=== PATIENT | female | born 1945 | race Caucasian/White ===

== ENCOUNTER 2019-12-25 00:01 | Emergency (ER) | payer MEDICARE, BC ==
--- NOTE | 2019-12-25 00:30 | EDM.PDOC ---
ED HPI GENERAL MEDICAL PROBLEM - General Chief Complaint: Headache Stated Complaint: HEADACHE Time Seen by Provider: 12/25/19 00:27 Source of Information: Reports: Patient History Limitations: Reports: No Limitations - History of Present Illness INITIAL COMMENTS - FREE TEXT/NARRATIVE: 74 yo female with MARKS for 3 days. Started insidiously on Wednesday,got worse tonight,Worse when she lays down. Woke up with it tonight.No other symptoms. Previously healthy.Nonsmoker. - Related Data Allergies Allergy/AdvReac Type Severity Reaction Status Date / Time Penicillins Allergy Diarrhea Verified 12/25/19 00:18 Home Meds: Home Meds Rosuvastatin Calcium 10 mg PO DAILY 12/25/19 [History] Past Medical History HEENT History: Reports: Other (See Below) Other HEENT History: Wears glasses. Cardiovascular History: Reports: High Cholesterol, Other (See Below) Other Cardiovascular History: Borderline hypertension. Gastrointestinal History: Reports: Other (See Below) Other Gastrointestinal History: IBS. - Past Surgical History Female Surgical History: Reports: Hysterectomy ED ROS GENERAL - Review of Systems Review Of Systems: Comprehensive ROS is negative, except as noted in HPI. - Physical Exam Exam: See Below Exam Limited By: No Limitations General Appearance: Alert, WD/WN, No Apparent Distress Throat/Mouth: Normal Inspection, Normal Lips, Normal Teeth, Normal Gums, Normal Oropharynx, Normal Voice, No Airway Compromise Head Exam: Atraumatic, Normocephalic Neck: Normal Inspection, Supple, Non-Tender, Full Range of Motion Cardiovascular: Normal Peripheral Pulses, Regular Rate, Rhythm, No Edema, No Gallop, No JVD, No Murmur, No Rub Neuro Exam (Abbreviated): Alert, Oriented, CN II-XII Intact, Normal Cognition, Normal Gait, Normal Reflexes, No Motor/Sensory Deficits Extremities: Normal Inspection, Normal Range of Motion Psychiatric: Normal Affect, Normal Mood Skin Exam: Warm, Dry Course - Vital Signs Last Recorded V/S: Last Vital Signs Temp 97.6 F 12/25/19 00:05 Pulse 69 12/25/19 01:40 Resp 16 12/25/19 01:40 BP 152/61 H 12/25/19 01:40 Pulse Ox 97 12/25/19 01:40 - Orders/Labs/Meds Orders: Active Orders 24 hr Category Date Time Status Head wo Cont [CT] Stat Exams 12/25/19 00:27 Taken Labs: Laboratory Tests 12/25/19 12/25/19 12/25/19 Range/Units 00:42 00:42 00:42 WBC 4.7 (4.5-12.0) X10-3/uL RBC 4.49 (3.23-5.20) x10(6)uL Hgb 13.8 (11.5-15.5) g/dL Hct 42.2 (30.0-51.3) % MCV 94.0 (80-96) fL MCH 30.7 (27.7-33.6) pg MCHC 32.6 (32.2-35.4) g/dL RDW 13.0 (11.5-15.5) % Plt Count 232 (125-369) X10(3)uL MPV 8.4 (7.4-10.4) fL Neut % (Auto) 55.4 (46-82) % Lymph % (Auto) 29.0 (13-37) % [place] % (Auto) 12.9 H (4-12) % Eos % (Auto) 2 (1.0-5.0) % Baso % (Auto) 1 (0-2) % Neut # (Auto) 2.6 (1.6-8.3) # Lymph # (Auto) 1.4 (0.6-5.0) # [place] # (Auto) 0.6 (0.0-1.3) # Eos # (Auto) 0.1 (0.0-0.8) # Baso # (Auto) 0.0 (0.0-0.2) # Sodium 144 (135-145) mmol/L Potassium 3.7 (3.5-5.3) mmol/L Chloride 106 (100-110) mmol/L Carbon Dioxide 28 (21-32) mmol/L BUN 15 (7-18) mg/dL Creatinine 0.7 (0.55-1.02) mg/dL Est Cr Clr Drug Dosing 60.17 mL/min Estimated GFR (MDRD) > 60 (>60) BUN/Creatinine Ratio 21.4 H (9-20) Glucose 104 (80-116) mg/dL Calcium 9.1 (8.6-10.2) mg/dL Troponin I 7.4 (4.0-60.3) pg/mL Meds: Medications Discontinued Medications Generic Name Dose Route Start Last Admin Trade Name Peteq PRN Reason Stop Dose Admin Enalaprilat 1.25 mg 12/25/19 00:30 12/25/19 00:40 Vasotec Iv IVPUSH 12/25/19 00:31 1.25 mg ONETIME ONE Administration Labetalol HCl 10 mg 12/25/19 00:27 12/25/19 00:48 Normodyne IVPUSH 12/25/19 00:28 Not Given ONETIME ONE Protocol Departure - Departure Time of Disposition: 02:00 Disposition: Home, Self-Care 01 Condition: Good Clinical Impression: Tension-type headache - Discharge Information Instructions: How to Take Your Blood Pressure Referrals: Raymundo Guidry MD [Primary Care Provider] - Forms: ED Department Discharge Care Plan Goals: Rest. Check blood pressure daily. Follow up with MD. Sepsis Event Note - Evaluation Sepsis Screening Result: No Definite Risk - Focused Exam Vital Signs: Vital Signs Temp Pulse Resp BP BP Pulse Ox 12/25/19 01:40 69 16 152/61 H 97 12/25/19 01:25 65 12 146/62 H 100 12/25/19 01:15 68 12 152/65 H 100 12/25/19 01:00 72 16 166/66 H 99 12/25/19 00:45 72 14 168/62 H 99 12/25/19 00:40 166/66 H 12/25/19 00:25 71 18 158/62 H 99 12/25/19 00:05 97.6 F 78 16 197/74 H 98 Date Exam was Performed: 12/25/19 Time Exam was Performed: 05:21 - Problem List & Annotations (1) HTN (hypertension) SNOMED Code(s): 25303717 Code(s): I10 - ESSENTIAL (PRIMARY) HYPERTENSION Status: Acute Qualifiers: Hypertension type: essential hypertension Qualified Code(s): I10 - Essential (primary) hypertension (2) Headache SNOMED Code(s): 45202064 Code(s): R51 - HEADACHE Status: Acute Qualifiers: Headache type: new daily persistent Qualified Code(s): G44.52 - New daily persistent headache (NDPH) - Problem List Review Problem List Initiated/Reviewed/Updated: Yes - My Orders Last 24 Hours: My Active Orders 12/25/19 00:27 Head wo Cont [CT] Stat - Assessment/Plan Last 24 Hours: My Active Orders 12/25/19 00:27 Head wo Cont [CT] Stat Plan: Vasotec IV. CT head non contrast was normal Reassurance and Discharge.
[2019-12-25] MEDS: Enalaprilat 1.25 MG/ML SDV IVPUSH ONE (00:40)
[2019-12-25] MEDS: Labetalol 20 MG/4 ML Syringe IVPUSH ONE (00:48)
== END 2019-12-25 02:00 | disposition home or self-care (01) ==
LOC: FB.ED 00:01
DX: G44.209 Tension-type headache, unspecified, not intractable (principal); I10 Essential (primary) hypertension; Z88.0 Allergy status to penicillin; E78.00 Pure hypercholesterolemia, unspecified; Z79.899 Other long term (current) drug therapy
CPT/HCPCS: 36415; 70450; 80048; 84484; 85025; 96374; 99284-25

== ENCOUNTER 2020-06-04 08:24 | Day surgery (SDC) | payer MEDICARE, BC ==
[2020-06-04] MEDS ORDERED: Midazolam 1 MG/ML 2 ML SDV IV ONE (08:25)
[2020-06-04] MEDS ORDERED: fentaNYL 100 MCG/2 ML SDV IV ONE (08:25)
[2020-06-04] MEDS ORDERED: Sodium Chloride 0.9% 10 ML Syringe FLUSH PRN (09:00)
[2020-06-04] MEDS ORDERED: Lactated Ringers 1,000 ML IV PRN (09:00)
[2020-06-04] MEDS ORDERED: acetaZOLAMIDE 500 MG Cap.ER PO ONE (11:00)
--- NOTE | 2020-06-05 13:23 | OR ---
DATE OF OPERATION: 06/04/2020 SURGEON: Nirali Delgado MD PREOPERATIVE DIAGNOSIS: Visually significant cataract, left eye. POSTOPERATIVE DIAGNOSIS: Visually significant cataract, left eye. PROCEDURES PERFORMED: Phacoemulsification with intraocular lens placement, left eye. ASSISTANTS: None. ANESTHESIA: Local with sedation. COMPLICATIONS: None. BLOOD LOSS: None. IMPLANTS: Xu ACU0T0, 20.0 diopter lens, serial #[id number] implanted. CDE: 6.04. DESCRIPTION OF PROCEDURE: After risks and benefits were reviewed with the patient, consent was obtained in the preoperative area, and the operative eye was marked with a surgical pen. In the preoperative area, a pledget was used to dilate the pupil consisting of a mixture of phenylephrine 10%, cyclopentolate 2%, moxifloxacin 0.5%, and bupivacaine 0.75%. The patient was taken to the operating room, where a time-out was performed, and the patient was placed under monitored anesthesia care. Topical tetracaine was used for anesthesia. The operative eye was prepped and draped for ophthalmic surgery, and the microscope was brought into position and focused. A paracentesis incision was made, followed by injection of preservative-free 1% lidocaine into the anterior chamber, followed by injection of Viscoat into the anterior chamber. A microkeratome blade was used to make a corneal limbal incision temporally. A cystotome was used to make the beginning of the capsulorrhexis, which was carried around 360 degrees in a curvilinear fashion using Utrata forceps. A Lozano cannula with BSS was used to hydrodissect and hydrodelineate the nucleus. The nucleus was removed in a divide and conquer manner using phacoemulsification. Irrigation and aspiration were used to remove the remaining cortical material. Provisc was used to inflate the capsular bag, and a pre-loaded Xu ACU0T0, 20.0 diopter lens, serial number [id number] was injected into the capsular bag. A Sinskey hook was used to position and center the lens. Next, irrigation and aspiration was used to remove any remaining viscoelastic and cortical material from the anterior chamber. BSS on a cannula was used to inflate the anterior chamber and hydrate the wound. The wound was checked and found to be watertight. 1 mg of Moxifloxacin was injected into the anterior chamber. Drapes were removed and the eye was cleaned. A drop of brimonidine 0.15% and a drop of TobraDex was placed. The eye was shielded, and the patient was taken to the recovery room in stable condition. CC: Kylee Miller NP CC: Guzman Raymundo OD CC: Nirali Delgado MD /[id number] [place]/MER[place]
== END 2020-06-04 11:18 | disposition home or self-care (01) ==
LOC: FB.SDS 08:24 → EDUNIT# 11:00 → FB.SDS 11:18
PROVIDERS: ATTEND Ophthalmology
DX: H25.813 Combined forms of age-related cataract, bilateral (principal); H35.371 Puckering of macula, right eye; H43.811 Vitreous degeneration, right eye; H40.013 Open angle with borderline findings, low risk, bilateral; H52.223 Regular astigmatism, bilateral; E78.5 Hyperlipidemia, unspecified; H02.886 Meibomian gland dysfunction of left eye, unspecified eyelid; H02.883 Meibomian gland dysfunction of right eye, unspecified eyelid; Z79.899 Other long term (current) drug therapy
CPT/HCPCS: 00142-QZ; A9270-GY; J2250; J3010; J7120; V2632

== ENCOUNTER 2020-06-18 09:18 | Day surgery (SDC) | payer MEDICARE, BC ==
[2020-06-18] MEDS ORDERED: fentaNYL 100 MCG/2 ML SDV IV ONE (09:19)
[2020-06-18] MEDS ORDERED: Midazolam 1 MG/ML 2 ML SDV IV ONE (09:19)
[2020-06-18] MEDS ORDERED: acetaZOLAMIDE 500 MG Cap.ER PO ONE (10:00)
[2020-06-18] MEDS ORDERED: Sodium Chloride 0.9% 10 ML Syringe FLUSH PRN (10:00)
[2020-06-18] MEDS ORDERED: Lactated Ringers 1,000 ML IV PRN (10:00)
[2020-06-18] MEDS ORDERED: acetaZOLAMIDE 500 MG Cap.ER ONE (12:11)
--- NOTE | 2020-06-19 09:50 | OR ---
DATE OF OPERATION: 06/18/2020 SURGEON: Nirali Delgado MD PREOPERATIVE DIAGNOSIS: Visually significant cataract, right eye. POSTOPERATIVE DIAGNOSIS: Visually significant cataract, right eye. PROCEDURES PERFORMED: Phacoemulsification with intraocular lens placement, right eye. ASSISTANTS: None. ANESTHESIA: Local with sedation. COMPLICATIONS: None. BLOOD LOSS: None. IMPLANTS: Xu ACU0T0, 20.0 diopter lens implanted. CDE: 3.13. DESCRIPTION OF PROCEDURE: After risks and benefits were reviewed with the patient, consent was obtained in the preoperative area, and the operative eye was marked with a surgical pen. In the preoperative area, a pledget was used to dilate the pupil consisting of a mixture of phenylephrine 10%, cyclopentolate 2%, moxifloxacin 0.5%, and bupivacaine 0.75%. The patient was taken to the operating room, where a time-out was performed, and the patient was placed under monitored anesthesia care. Topical tetracaine was used for anesthesia. The operative eye was prepped and draped for ophthalmic surgery, and the microscope was brought into position and focused. A paracentesis incision was made, followed by injection of preservative-free 1% lidocaine into the anterior chamber, followed by injection of Viscoat into the anterior chamber. A microkeratome blade was used to make a corneal limbal incision temporally. A cystotome was used to make the beginning of the capsulorrhexis, which was carried around 360 degrees in a curvilinear fashion using Utrata forceps. A Lozano cannula with BSS was used to hydrodissect and hydrodelineate the nucleus. The nucleus was removed in a divide and conquer manner using phacoemulsification. Irrigation and aspiration were used to remove the remaining cortical material. Provisc was used to inflate the capsular bag, and a pre-loaded Xu ACU0T0, 20.0 diopter lens, serial number [id number] was injected into the capsular bag. A Sinskey hook was used to position and center the lens. Next, irrigation and aspiration was used to remove any remaining viscoelastic and cortical material from the anterior chamber. BSS on a cannula was used to inflate the anterior chamber and hydrate the wound. The wound was checked and found to be watertight. 1 mg of Moxifloxacin was injected into the anterior chamber. Drapes were removed and the eye was cleaned. A drop of brimonidine 0.15% and a drop of TobraDex was placed. The eye was shielded, and the patient was taken to the recovery room in stable condition. CC: ESTEFANÍA SÁNCHEZ OD CC: MOISES WYNN /[id number] [place]
== END 2020-06-18 12:15 | disposition home or self-care (01) ==
LOC: FB.SDS 09:18
PROVIDERS: ATTEND Ophthalmology
DX: H25.013 Cortical age-related cataract, bilateral (principal); E78.2 Mixed hyperlipidemia; G47.00 Insomnia, unspecified; Z79.899 Other long term (current) drug therapy
CPT/HCPCS: 00142; 66984; A9270; J2250; J3010; J7120; V2632